=== PATIENT | male | born 1970 | race Caucasian/White ===

== ENCOUNTER 2018-12-05 22:26 | Inpatient (IN) | payer OTHER ==
[2018-12-06 01:59] LABS: WHITE BLOOD COUNT 10.3 10^3/ul (4.8-10.8)
[2018-12-06 01:59] LABS: ADD MAN DIFF? NO; BASOPHIL # 0.1 10^3/ul (0.0-0.1); BASOPHILS % 0.6 % (0.0-2.0); EOSINOPHILS # 0.4 10^3/ul (0.0-0.5); EOSINOPHILS % 3.8 % (0.0-7.0); HEMATOCRIT 27.6 % (42.0-52.0); HEMOGLOBIN 8.8 g/dl (14.0-18.0); LYMPHOCYTES # 2.2 10^3/ul (0.8-2.9); LYMPHOCYTES % 21.6 % (15.0-51.0); MEAN CORPUSCULAR HGB CONC 31.9 g/dl (32.0-37.0); MEAN CORPUSCULAR VOLUME 81.4 fl (82.0-101.0); MEAN PLATELET VOLUME 9.4 fl (7.4-10.4); MONOCYTE # 1.1 10^3/ul (0.3-0.9); MONOCYTES % 10.6 % (0.0-11.0); NEUTROPHIL # 6.5 10^3/ul (1.6-7.5); NEUTROPHILS % 62.8 % (39.0-77.0); PLATELET COUNT 543 10^3/UL (140-415); RED BLOOD COUNT 3.39 10^6/ul (4.70-6.10); RED CELL DISTRIBUTION WIDTH 12.7 % (11.5-14.5)
[2018-12-06 02:18] LABS: ALANINE AMINOTRANSFERASE 26 IU/L (13-69); ALBUMIN 3.1 g/dl (3.3-4.9); ALBUMIN/GLOBULIN RATIO 0.77; ALKALINE PHOSPHATASE 289 IU/L (42-121); ANION GAP 6 (5-13); ASPARTATE AMINO TRANSFERASE 21 IU/L (15-46); BILIRUBIN,INDIRECT 0.2 mg/dl (0-1.1); BILIRUBIN,TOTAL 0.2 mg/dl (0.2-1.3); BLOOD UREA NITROGEN 12 mg/dl (7-20); CALCIUM 8.8 mg/dl (8.4-10.2); CARBON DIOXIDE 27 mmol/L (21-31); CHLORIDE 107 mmol/L (97-110); CREATININE 1.05 mg/dl (0.61-1.24); Estimated GFR > 60 mL/min (>60); GLUCOSE 185 mg/dl (70-220); POTASSIUM 3.9 mmol/L (3.5-5.1); SODIUM 140 mmol/L (135-144); TOTAL PROTEIN 7.1 g/dl (6.1-8.1)
[2018-12-06] MEDS: SODIUM CHLORIDE 0.9% 1L BAG IV* (02:34)
[2018-12-06 02:35] LABS: INR 1.09; PROTIME 14.2 Sec (11.9-14.9); PT RATIO 1.1
[2018-12-06 02:36] LABS: PARTIAL THROMBOPLASTIN TIME 31.5 Sec (23.0-35.0)
[2018-12-06] MEDS: CEFEPIME 2GM/50 ML (PMX) 50 ML IVPB (02:38)
[2018-12-06] MEDS: VANCOMYCIN 1 GM (PMX) 250 ML IVPB (03:39)
[2018-12-06 06:08] LABS: LACTIC ACID 0.8 mmol/L (0.5-2.0)
[2018-12-06 07:27] LABS: B-TYPE NATRIURETIC PEPTIDE 7060 PG/ML (0-125)
[2018-12-06 07:27] LABS: TROPONIN-I 0.111 ng/ml (0.000-0.120)
[2018-12-06] MEDS ORDERED: ONDANSETRON 4 MG INJ IV (08:30)
[2018-12-06] MEDS ORDERED: NACL 0.9% 3 ML SYG IV (08:30)
[2018-12-06] MEDS: SOD CHLORIDE 0.45% 1,000 ML IV (10:20)
[2018-12-06] MEDS: ENOXAPARIN 40 MG/0.4 ML SYG SC (10:22)
[2018-12-06] MEDS: ASPIRIN (EC) 325 MG TAB PO (10:23)
[2018-12-06 10:47] LABS: CREATINE KINASE 210 IU/L (23-200)
[2018-12-06 11:00] LABS: CK INDEX 0.7; CK-MB 1.48 ng/ml (0.0-2.4); TROPONIN-I 0.082 ng/ml (0.000-0.120)
[2018-12-06 11:01] LABS: IRON 19 ug/dl (35-150)
[2018-12-06] MEDS: FUROSEMIDE 40 MG INJ IV (11:02)
[2018-12-06 11:12] LABS: % IRON SATURATION 10 % SAT (22-52); TOTAL IRON BINDING CAPACITY 200 ug/dl (241-421)
[2018-12-06] MEDS: CEFTRIAXONE 1 GM/50 ML (PMX) 50 ML IVPB (12:40)
[2018-12-06] MEDS: LINAGLIPTIN 5 MG TABLET PO (12:41)
[2018-12-06] MEDS: METOPROLOL (XL) 25 MG TAB PO (12:41)
[2018-12-06] MEDS: BRIMONIDINE 0.15% 5 ML OPH LEFT EYE ×2 (12:42→21:25)
[2018-12-06] MEDS: LOSARTAN 50 MG TAB PO (12:42)
[2018-12-06] MEDS: PREDNISOLONE ACET 1% 5 ML OPH RIGHT EYE ×3 (12:43→20:09)
[2018-12-06] MEDS: INSULIN ASPART [NOVOLOG] 3 ML PEN SC ×5 (13:06→21:25)
[2018-12-06 14:39] LABS: CREATINE KINASE 228 IU/L (23-200)
[2018-12-06 14:51] LABS: CK INDEX 0.8; CK-MB 1.82 ng/ml (0.0-2.4); TROPONIN-I 0.084 ng/ml (0.000-0.120)
[2018-12-06] MEDS: FERROUS SULFATE (EC) 325 MG TAB PO (17:12)
[2018-12-06] MEDS: ACETAMINOPHEN 325 MG TAB PO (17:12)
[2018-12-06] MEDS: ATORVASTATIN 40 MG TAB PO (20:09)
[2018-12-06] MEDS: INSULIN GLARGINE [LANTus] (100 UNITS/ML) SYG SC (20:14)
[2018-12-07] MEDS: ACCU-CHEK XX (01:13)
[2018-12-07] MEDS: PANTOPRAZOLE 40 MG INJ IV (05:28)
[2018-12-07] MEDS: hydrALAzine 20 MG INJ IV ×2 (05:30→16:06)
[2018-12-07] MEDS: BRIMONIDINE 0.15% 5 ML OPH LEFT EYE ×3 (05:35→21:38)
[2018-12-07 06:29] LABS: CHOLESTEROL 179 mg/dl (100-200)
[2018-12-07 06:29] LABS: CHOL/HDL RATIO 6.6 RATIO; HDL CHOLESTEROL 27 mg/dl (27-67); LDL CHOLESTEROL,CALCULATED 128 mg/dl; TRIGLYCERIDES 119 mg/dl (0-149)
[2018-12-07] MEDS: ASPIRIN (EC) 325 MG TAB PO (08:13)
[2018-12-07] MEDS: LOSARTAN 50 MG TAB PO ×2 (08:13→20:23)
[2018-12-07] MEDS: FERROUS SULFATE (EC) 325 MG TAB PO (08:13)
[2018-12-07] MEDS: LINAGLIPTIN 5 MG TABLET PO (08:13)
[2018-12-07] MEDS: METOPROLOL (XL) 25 MG TAB PO (08:13)
[2018-12-07] MEDS: PREDNISOLONE ACET 1% 5 ML OPH RIGHT EYE ×4 (08:14→20:28)
[2018-12-07] MEDS: INSULIN ASPART [NOVOLOG] 3 ML PEN SC ×7 (08:20→20:31)
[2018-12-07] MEDS: ENOXAPARIN 40 MG/0.4 ML SYG SC ×2 (08:21→13:34)
[2018-12-07] MEDS ORDERED: LISINOPRIL 20 MG TAB PO (09:00)
[2018-12-07] MEDS: REGADENOSON 0.4 MG/5 ML SYG (12:10)
[2018-12-07] MEDS: CEFTRIAXONE 1 GM/50 ML (PMX) 50 ML IVPB (13:14)
[2018-12-07] MEDS: FUROSEMIDE 40 MG INJ IV (16:06)
[2018-12-07 16:19] LABS: ADD MAN DIFF? NO
[2018-12-07 16:22] LABS: WHITE BLOOD COUNT 9.9 10^3/ul (4.8-10.8)
[2018-12-07 16:22] LABS: BASOPHIL # 0.1 10^3/ul (0.0-0.1); BASOPHILS % 0.7 % (0.0-2.0); EOSINOPHILS # 0.2 10^3/ul (0.0-0.5); EOSINOPHILS % 1.8 % (0.0-7.0); HEMATOCRIT 25.6 % (42.0-52.0); HEMOGLOBIN 8.1 g/dl (14.0-18.0); LYMPHOCYTES # 2.1 10^3/ul (0.8-2.9); LYMPHOCYTES % 20.9 % (15.0-51.0); MEAN CORPUSCULAR HEMOGLOBIN 25.8 pg (29.0-33.0); MEAN CORPUSCULAR HGB CONC 31.6 g/dl (32.0-37.0); MEAN CORPUSCULAR VOLUME 81.5 fl (82.0-101.0); MEAN PLATELET VOLUME 9.9 fl (7.4-10.4); MONOCYTE # 0.8 10^3/ul (0.3-0.9); MONOCYTES % 8.4 % (0.0-11.0); NEUTROPHIL # 6.7 10^3/ul (1.6-7.5); NEUTROPHILS % 67.4 % (39.0-77.0); PLATELET COUNT 502 10^3/UL (140-415); RED BLOOD COUNT 3.14 10^6/ul (4.70-6.10); RED CELL DISTRIBUTION WIDTH 13.2 % (11.5-14.5)
[2018-12-07] MEDS: ATORVASTATIN 40 MG TAB PO (20:15)
[2018-12-07] MEDS: INSULIN GLARGINE [LANTus] (100 UNITS/ML) SYG SC (20:31)
[2018-12-08] MEDS: hydrALAzine 20 MG INJ IV ×2 (00:14→17:26)
[2018-12-08] MEDS: ACCU-CHEK XX (00:21)
[2018-12-08] MEDS: PANTOPRAZOLE 40 MG INJ IV (05:10)
[2018-12-08] MEDS: BRIMONIDINE 0.15% 5 ML OPH LEFT EYE ×3 (05:12→21:11)
[2018-12-08] MEDS: INSULIN ASPART [NOVOLOG] 3 ML PEN SC ×7 (08:15→21:27)
[2018-12-08] MEDS: FERROUS SULFATE (EC) 325 MG TAB PO (08:33)
[2018-12-08] MEDS: LOSARTAN 50 MG TAB PO ×2 (08:34→21:11)
[2018-12-08] MEDS: LINAGLIPTIN 5 MG TABLET PO (08:34)
[2018-12-08] MEDS: METOPROLOL (XL) 25 MG TAB PO ×2 (08:34→13:03)
[2018-12-08] MEDS: ASPIRIN 81 MG TAB PO (08:34)
[2018-12-08] MEDS: FUROSEMIDE 40 MG INJ IV (08:35)
[2018-12-08] MEDS: ENOXAPARIN 40 MG/0.4 ML SYG SC (08:37)
[2018-12-08] MEDS: PREDNISOLONE ACET 1% 5 ML OPH RIGHT EYE ×4 (08:37→21:11)
[2018-12-08] MEDS: CEFTRIAXONE 1 GM/50 ML (PMX) 50 ML IVPB (12:18)
[2018-12-08] MEDS: DOXYCYCLINE 100 MG TAB PO (21:11)
[2018-12-08] MEDS: ATORVASTATIN 40 MG TAB PO (21:12)
[2018-12-08] MEDS: INSULIN GLARGINE [LANTus] (100 UNITS/ML) SYG SC (21:27)
[2018-12-09] MEDS: ACCU-CHEK XX (02:00)
[2018-12-09] MEDS: INSULIN ASPART [NOVOLOG] 3 ML PEN SC ×8 (04:37→20:14)
[2018-12-09] MEDS: BRIMONIDINE 0.15% 5 ML OPH LEFT EYE ×3 (05:47→21:59)
[2018-12-09] MEDS: PANTOPRAZOLE (EC) 40 MG TAB PO (05:47)
[2018-12-09] MEDS: FERROUS SULFATE (EC) 325 MG TAB PO ×2 (08:14→20:08)
[2018-12-09] MEDS: ASPIRIN 81 MG TAB PO (08:14)
[2018-12-09] MEDS: LINAGLIPTIN 5 MG TABLET PO (08:14)
[2018-12-09] MEDS: DOXYCYCLINE 100 MG TAB PO ×2 (08:14→20:08)
[2018-12-09] MEDS: METOPROLOL (XL) 25 MG TAB PO (08:15)
[2018-12-09] MEDS: LOSARTAN 50 MG TAB PO ×2 (08:16→20:08)
[2018-12-09] MEDS: ENOXAPARIN 40 MG/0.4 ML SYG SC (08:17)
[2018-12-09] MEDS: FUROSEMIDE 40 MG INJ IV (08:17)
[2018-12-09] MEDS: PREDNISOLONE ACET 1% 5 ML OPH RIGHT EYE ×4 (08:18→20:09)
[2018-12-09 09:01] LABS: ANION GAP 5 (5-13); BLOOD UREA NITROGEN 18 mg/dl (7-20); CALCIUM 8.6 mg/dl (8.4-10.2); CARBON DIOXIDE 27 mmol/L (21-31); CHLORIDE 105 mmol/L (97-110); CREATININE 1.07 mg/dl (0.61-1.24); Estimated GFR > 60 mL/min (>60); GLUCOSE 115 mg/dl (70-220); SODIUM 137 mmol/L (135-144)
[2018-12-09 09:35] LABS: ADD UMIC YES; UR ASCORBIC ACID NEGATIVE (NEGATIVE); UR BACTERIA FEW /HPF (NONE SEEN); UR BILIRUBIN (Dip) NEGATIVE (NEGATIVE); UR BLOOD (Dip) 1+ mg/dL (NEGATIVE); UR CLARITY CLEAR (CLEAR); UR COLOR YELLOW (YELLOW); UR GLUCOSE (Dip) 1+ mg/dL (NEGATIVE); UR KETONES (Dip) NEGATIVE (NEGATIVE); UR LEUKOCYTE ESTERASE (Dip) NEGATIVE Leu/ul (NEGATIVE); UR NITRITE (Dip) NEGATIVE (NEGATIVE); UR RBC 4 /HPF (0-5); UR SPECIFIC GRAVITY (Dip) 1.018 (1.003-1.030); UR TOTAL PROTEIN (Dip) 2+ mg/dl (NEGATIVE); UR UROBILINOGEN (Dip) NEGATIVE (NEGATIVE); UR WBC 1 /HPF (0-5)
[2018-12-09] MEDS: CEFTRIAXONE 1 GM/50 ML (PMX) 50 ML IVPB (10:20)
[2018-12-09] MEDS: hydrALAzine 20 MG INJ IV (10:20)
[2018-12-09] MEDS: ATORVASTATIN 40 MG TAB PO (20:08)
[2018-12-09] MEDS: INSULIN GLARGINE [LANTus] (100 UNITS/ML) SYG SC (20:32)
[2018-12-10] MEDS: ACCU-CHEK XX (02:00)
[2018-12-10] MEDS: BRIMONIDINE 0.15% 5 ML OPH LEFT EYE ×3 (05:56→21:19)
[2018-12-10] MEDS: PANTOPRAZOLE (EC) 40 MG TAB PO (05:58)
[2018-12-10 06:51] LABS: ADD MAN DIFF? NO
[2018-12-10 06:53] LABS: BASOPHIL # 0.1 10^3/ul (0.0-0.1); BASOPHILS % 0.9 % (0.0-2.0); EOSINOPHILS # 0.3 10^3/ul (0.0-0.5); EOSINOPHILS % 2.9 % (0.0-7.0); HEMATOCRIT 26.3 % (42.0-52.0); HEMOGLOBIN 8.3 g/dl (14.0-18.0); LYMPHOCYTES # 1.9 10^3/ul (0.8-2.9); LYMPHOCYTES % 20.5 % (15.0-51.0); MEAN CORPUSCULAR HGB CONC 31.6 g/dl (32.0-37.0); MEAN CORPUSCULAR VOLUME 82.4 fl (82.0-101.0); MEAN PLATELET VOLUME 9.8 fl (7.4-10.4); MONOCYTE # 0.8 10^3/ul (0.3-0.9); NEUTROPHIL # 6.2 10^3/ul (1.6-7.5); NEUTROPHILS % 66.1 % (39.0-77.0); PLATELET COUNT 498 10^3/UL (140-415); RED BLOOD COUNT 3.19 10^6/ul (4.70-6.10); RED CELL DISTRIBUTION WIDTH 13.6 % (11.5-14.5)
[2018-12-10 06:53] LABS: WHITE BLOOD COUNT 9.3 10^3/ul (4.8-10.8)
[2018-12-10 07:59] LABS: ANION GAP 5 (5-13); BLOOD UREA NITROGEN 18 mg/dl (7-20); CALCIUM 8.6 mg/dl (8.4-10.2); CARBON DIOXIDE 26 mmol/L (21-31); CHLORIDE 107 mmol/L (97-110); CREATININE 0.99 mg/dl (0.61-1.24); Estimated GFR > 60 mL/min (>60); GLUCOSE 214 mg/dl (70-220); POTASSIUM 4.1 mmol/L (3.5-5.1); SODIUM 138 mmol/L (135-144)
[2018-12-10] MEDS: INSULIN ASPART [NOVOLOG] 3 ML PEN SC ×7 (08:45→20:53)
[2018-12-10] MEDS: PREDNISOLONE ACET 1% 5 ML OPH RIGHT EYE ×4 (09:00→20:56)
[2018-12-10] MEDS: DOXYCYCLINE 100 MG TAB PO ×2 (09:59→20:58)
[2018-12-10] MEDS: FUROSEMIDE 40 MG INJ IV ×2 (10:00→17:51)
[2018-12-10] MEDS: LOSARTAN 50 MG TAB PO ×2 (10:00→21:01)
[2018-12-10] MEDS: FERROUS SULFATE (EC) 325 MG TAB PO ×2 (10:00→20:58)
[2018-12-10] MEDS: METOPROLOL (XL) 25 MG TAB PO (10:00)
[2018-12-10] MEDS: ASPIRIN 81 MG TAB PO (10:00)
[2018-12-10] MEDS: LINAGLIPTIN 5 MG TABLET PO (10:01)
[2018-12-10] MEDS: ENOXAPARIN 40 MG/0.4 ML SYG SC (10:03)
[2018-12-10] MEDS: INSULIN GLARGINE [LANTus] (100 UNITS/ML) SYG SC (20:51)
[2018-12-10] MEDS: ATORVASTATIN 40 MG TAB PO (20:57)
[2018-12-11] MEDS: ACCU-CHEK XX (02:00)
[2018-12-11] MEDS: hydrALAzine 20 MG INJ IV (02:08)
[2018-12-11 03:23] LABS: ADD UMIC YES; UR ASCORBIC ACID NEGATIVE (NEGATIVE); UR BILIRUBIN (Dip) NEGATIVE (NEGATIVE); UR BLOOD (Dip) 1+ mg/dL (NEGATIVE); UR CLARITY CLEAR (CLEAR); UR COLOR YELLOW (YELLOW); UR GLUCOSE (Dip) 1+ mg/dL (NEGATIVE); UR KETONES (Dip) NEGATIVE (NEGATIVE); UR LEUKOCYTE ESTERASE (Dip) NEGATIVE Leu/ul (NEGATIVE); UR NITRITE (Dip) NEGATIVE (NEGATIVE); UR RBC 8 /HPF (0-5); UR SPECIFIC GRAVITY (Dip) 1.013 (1.003-1.030); UR TOTAL PROTEIN (Dip) 2+ mg/dl (NEGATIVE); UR UROBILINOGEN (Dip) NEGATIVE (NEGATIVE); UR WBC 0 /HPF (0-5)
[2018-12-11 03:27] LABS: CREATININE,URINE RANDOM 80.75 mg/dl (20-370); PROTEIN/CREAT RATIO 2.29 RATIO
[2018-12-11 05:08] LABS: ADD MAN DIFF? NO
[2018-12-11 05:20] LABS: BASOPHIL # 0.1 10^3/ul (0.0-0.1); BASOPHILS % 1.1 % (0.0-2.0); EOSINOPHILS # 0.3 10^3/ul (0.0-0.5); EOSINOPHILS % 2.8 % (0.0-7.0); HEMATOCRIT 25.3 % (42.0-52.0); HEMOGLOBIN 8.1 g/dl (14.0-18.0); LYMPHOCYTES # 2.5 10^3/ul (0.8-2.9); LYMPHOCYTES % 26.7 % (15.0-51.0); MEAN CORPUSCULAR VOLUME 81.4 fl (82.0-101.0); MONOCYTES % 10.3 % (0.0-11.0); NEUTROPHIL # 5.5 10^3/ul (1.6-7.5); NEUTROPHILS % 58.6 % (39.0-77.0); PLATELET COUNT 457 10^3/UL (140-415); RED BLOOD COUNT 3.11 10^6/ul (4.70-6.10); RED CELL DISTRIBUTION WIDTH 13.8 % (11.5-14.5)
[2018-12-11 05:20] LABS: WHITE BLOOD COUNT 9.4 10^3/ul (4.8-10.8)
[2018-12-11 05:53] LABS: ANION GAP 4 (5-13); BLOOD UREA NITROGEN 18 mg/dl (7-20); CALCIUM 8.6 mg/dl (8.4-10.2); CARBON DIOXIDE 29 mmol/L (21-31); CHLORIDE 105 mmol/L (97-110); CREATININE 0.94 mg/dl (0.61-1.24); Estimated GFR > 60 mL/min (>60); GLUCOSE 159 mg/dl (70-220); POTASSIUM 3.7 mmol/L (3.5-5.1); SODIUM 138 mmol/L (135-144)
[2018-12-11] MEDS: BRIMONIDINE 0.15% 5 ML OPH LEFT EYE ×3 (06:00→20:39)
[2018-12-11] MEDS: PANTOPRAZOLE (EC) 40 MG TAB PO (06:46)
[2018-12-11] MEDS: FUROSEMIDE 40 MG INJ IV ×2 (06:48→17:52)
[2018-12-11] MEDS: INSULIN ASPART [NOVOLOG] 3 ML PEN SC ×7 (07:50→20:41)
[2018-12-11] MEDS: METOPROLOL (XL) 25 MG TAB PO ×2 (09:00→11:10)
[2018-12-11] MEDS: LINAGLIPTIN 5 MG TABLET PO ×2 (09:00→11:07)
[2018-12-11] MEDS: FERROUS SULFATE (EC) 325 MG TAB PO ×3 (09:00→20:38)
[2018-12-11] MEDS: ASPIRIN 81 MG TAB PO ×2 (09:00→11:08)
[2018-12-11] MEDS: METOLAZONE 2.5 MG TAB PO ×2 (09:00→11:08)
[2018-12-11] MEDS: DOXYCYCLINE 100 MG TAB PO ×3 (09:00→20:38)
[2018-12-11] MEDS: LOSARTAN 50 MG TAB PO ×3 (09:00→20:39)
[2018-12-11] MEDS: ENOXAPARIN 40 MG/0.4 ML SYG SC ×2 (09:00→11:12)
[2018-12-11] MEDS: PREDNISOLONE ACET 1% 5 ML OPH RIGHT EYE ×4 (09:00→20:39)
[2018-12-11] MEDS: CEFTRIAXONE 1 GM/50 ML (PMX) 50 ML IVPB (15:25)
[2018-12-11] MEDS: traMADol 50 MG TAB PO (19:48)
[2018-12-11] MEDS: ATORVASTATIN 40 MG TAB PO (20:38)
[2018-12-11] MEDS: INSULIN GLARGINE [LANTus] (100 UNITS/ML) SYG SC (20:40)
[2018-12-12] MEDS: ACCU-CHEK XX (02:00)
[2018-12-12] MEDS: FUROSEMIDE 40 MG INJ IV ×2 (05:40→06:00)
[2018-12-12] MEDS: PANTOPRAZOLE (EC) 40 MG TAB PO (05:40)
[2018-12-12] MEDS: BRIMONIDINE 0.15% 5 ML OPH LEFT EYE ×3 (05:40→16:05)
[2018-12-12] MEDS: hydrALAzine 20 MG INJ IV (05:46)
[2018-12-12] MEDS: LINAGLIPTIN 5 MG TABLET PO (09:04)
[2018-12-12] MEDS: ASPIRIN 81 MG TAB PO (09:04)
[2018-12-12] MEDS: FERROUS SULFATE (EC) 325 MG TAB PO ×2 (09:05→20:22)
[2018-12-12] MEDS: LOSARTAN 50 MG TAB PO ×2 (09:06→20:23)
[2018-12-12] MEDS: DOXYCYCLINE 100 MG TAB PO ×2 (09:06→20:22)
[2018-12-12] MEDS: METOLAZONE 2.5 MG TAB PO (09:06)
[2018-12-12] MEDS: METOPROLOL (XL) 25 MG TAB PO (09:07)
[2018-12-12] MEDS: PREDNISOLONE ACET 1% 5 ML OPH RIGHT EYE ×4 (09:07→20:24)
[2018-12-12] MEDS: ENOXAPARIN 40 MG/0.4 ML SYG SC (09:10)
[2018-12-12] MEDS: INSULIN ASPART [NOVOLOG] 3 ML PEN SC ×7 (09:10→20:28)
[2018-12-12] MEDS: traMADol 50 MG TAB PO (09:47)
[2018-12-12] MEDS: CEFTRIAXONE 1 GM/50 ML (PMX) 50 ML IVPB (16:03)
[2018-12-12] MEDS: FUROSEMIDE 40 MG TAB PO (18:00)
[2018-12-12] MEDS: ATORVASTATIN 40 MG TAB PO (20:22)
[2018-12-12] MEDS: INSULIN GLARGINE [LANTus] (100 UNITS/ML) SYG SC (20:29)
[2018-12-13] MEDS: hydrALAzine 20 MG INJ IV (01:40)
[2018-12-13] MEDS: BRIMONIDINE 0.15% 5 ML OPH LEFT EYE ×4 (01:43→20:56)
[2018-12-13] MEDS: ACCU-CHEK XX (01:44)
[2018-12-13] MEDS: FUROSEMIDE 40 MG TAB PO ×2 (07:47→17:49)
[2018-12-13] MEDS: PANTOPRAZOLE (EC) 40 MG TAB PO (07:47)
[2018-12-13] MEDS: METOLAZONE 2.5 MG TAB PO (08:53)
[2018-12-13] MEDS: FERROUS SULFATE (EC) 325 MG TAB PO ×2 (08:53→20:43)
[2018-12-13] MEDS: DOXYCYCLINE 100 MG TAB PO ×2 (08:53→20:44)
[2018-12-13] MEDS: ASPIRIN 81 MG TAB PO (08:53)
[2018-12-13] MEDS: LINAGLIPTIN 5 MG TABLET PO (08:54)
[2018-12-13] MEDS: METOPROLOL (XL) 25 MG TAB PO (08:54)
[2018-12-13] MEDS: LOSARTAN 50 MG TAB PO ×2 (08:55→20:47)
[2018-12-13] MEDS: INSULIN ASPART [NOVOLOG] 3 ML PEN SC ×7 (08:58→20:41)
[2018-12-13] MEDS: PREDNISOLONE ACET 1% 5 ML OPH RIGHT EYE ×4 (09:00→20:56)
[2018-12-13] MEDS: ENOXAPARIN 40 MG/0.4 ML SYG SC (09:00)
[2018-12-13 09:54] LABS: ANION GAP 11 (5-13); BLOOD UREA NITROGEN 18 mg/dl (7-20); CARBON DIOXIDE 32 mmol/L (21-31); CHLORIDE 94 mmol/L (97-110); CREATININE 1.12 mg/dl (0.61-1.24); Estimated GFR > 60 mL/min (>60); GLUCOSE 178 mg/dl (70-220); SODIUM 137 mmol/L (135-144)
[2018-12-13 09:54] LABS: PHOSPHORUS 4.4 mg/dl (2.5-4.9)
[2018-12-13] MEDS: CEFTRIAXONE 1 GM/50 ML (PMX) 50 ML IVPB (15:17)
[2018-12-13] MEDS: INSULIN GLARGINE [LANTus] (100 UNITS/ML) SYG SC (20:42)
[2018-12-13] MEDS: ATORVASTATIN 40 MG TAB PO (20:44)
[2018-12-14] MEDS: ACCU-CHEK XX (02:00)
[2018-12-14] MEDS: BRIMONIDINE 0.15% 5 ML OPH LEFT EYE ×3 (05:22→22:11)
[2018-12-14] MEDS: PANTOPRAZOLE (EC) 40 MG TAB PO (05:23)
[2018-12-14] MEDS: FUROSEMIDE 40 MG TAB PO ×2 (05:23→18:51)
[2018-12-14] MEDS: PREDNISOLONE ACET 1% 5 ML OPH RIGHT EYE ×4 (09:00→21:14)
[2018-12-14] MEDS: DOXYCYCLINE 100 MG TAB PO ×2 (11:13→21:11)
[2018-12-14] MEDS: FERROUS SULFATE (EC) 325 MG TAB PO ×2 (11:13→21:09)
[2018-12-14] MEDS: LINAGLIPTIN 5 MG TABLET PO (11:13)
[2018-12-14] MEDS: LOSARTAN 50 MG TAB PO ×2 (11:14→21:11)
[2018-12-14] MEDS: METOLAZONE 2.5 MG TAB PO (11:14)
[2018-12-14] MEDS: METOPROLOL (XL) 25 MG TAB PO (11:15)
[2018-12-14] MEDS: ENOXAPARIN 40 MG/0.4 ML SYG SC (11:23)
[2018-12-14] MEDS: INSULIN ASPART [NOVOLOG] 3 ML PEN SC ×7 (11:23→21:05)
[2018-12-14] MEDS: ASPIRIN 81 MG TAB PO (11:26)
[2018-12-14] MEDS: INSULIN GLARGINE [LANTus] (100 UNITS/ML) SYG SC (21:05)
[2018-12-14] MEDS: ATORVASTATIN 40 MG TAB PO (21:09)
[2018-12-15] MEDS: ACCU-CHEK XX (02:00)
[2018-12-15] MEDS: BRIMONIDINE 0.15% 5 ML OPH LEFT EYE ×3 (06:40→21:33)
[2018-12-15] MEDS: PANTOPRAZOLE (EC) 40 MG TAB PO (06:41)
[2018-12-15] MEDS: FUROSEMIDE 40 MG TAB PO ×2 (06:41→18:31)
[2018-12-15] MEDS: PREDNISOLONE ACET 1% 5 ML OPH RIGHT EYE ×4 (09:00→21:33)
[2018-12-15] MEDS: INSULIN ASPART [NOVOLOG] 3 ML PEN SC ×7 (11:09→21:00)
[2018-12-15] MEDS: ENOXAPARIN 40 MG/0.4 ML SYG SC (11:10)
[2018-12-15] MEDS: LOSARTAN 50 MG TAB PO ×2 (11:12→21:33)
[2018-12-15] MEDS: LINAGLIPTIN 5 MG TABLET PO (11:12)
[2018-12-15] MEDS: METOPROLOL (XL) 25 MG TAB PO (11:13)
[2018-12-15] MEDS: FERROUS SULFATE (EC) 325 MG TAB PO ×2 (11:13→21:30)
[2018-12-15] MEDS: DOXYCYCLINE 100 MG TAB PO ×2 (11:13→21:31)
[2018-12-15] MEDS: METOLAZONE 2.5 MG TAB PO (11:13)
[2018-12-15] MEDS: ASPIRIN 81 MG TAB PO (11:13)
[2018-12-15] MEDS: ATORVASTATIN 40 MG TAB PO (21:30)
[2018-12-15] MEDS: INSULIN GLARGINE [LANTus] (100 UNITS/ML) SYG SC (21:30)
[2018-12-16] MEDS: ACCU-CHEK XX (02:00)
[2018-12-16] MEDS: BRIMONIDINE 0.15% 5 ML OPH LEFT EYE ×4 (06:00→21:25)
[2018-12-16] MEDS: PANTOPRAZOLE (EC) 40 MG TAB PO (06:37)
[2018-12-16] MEDS: FUROSEMIDE 40 MG TAB PO ×2 (06:39→17:45)
[2018-12-16] MEDS: INSULIN ASPART [NOVOLOG] 3 ML PEN SC ×7 (08:55→21:23)
[2018-12-16] MEDS: ENOXAPARIN 40 MG/0.4 ML SYG SC (08:56)
[2018-12-16] MEDS: DOXYCYCLINE 100 MG TAB PO ×2 (08:56→21:24)
[2018-12-16] MEDS: FERROUS SULFATE (EC) 325 MG TAB PO ×2 (08:57→21:24)
[2018-12-16] MEDS: METOLAZONE 2.5 MG TAB PO (08:57)
[2018-12-16] MEDS: METOPROLOL (XL) 25 MG TAB PO (08:58)
[2018-12-16] MEDS: ASPIRIN 81 MG TAB PO (08:58)
[2018-12-16] MEDS: LOSARTAN 50 MG TAB PO ×2 (08:58→21:27)
[2018-12-16] MEDS: LINAGLIPTIN 5 MG TABLET PO (08:58)
[2018-12-16] MEDS: PREDNISOLONE ACET 1% 5 ML OPH RIGHT EYE ×4 (08:59→21:25)
[2018-12-16 14:18] LABS: ANION GAP 3 (5-13); BLOOD UREA NITROGEN 31 mg/dl (7-20); CALCIUM 9.1 mg/dl (8.4-10.2); CARBON DIOXIDE 35 mmol/L (21-31); CHLORIDE 99 mmol/L (97-110); CREATININE 1.24 mg/dl (0.61-1.24); Estimated GFR > 60 mL/min (>60); GLUCOSE 182 mg/dl (70-220); POTASSIUM 4.1 mmol/L (3.5-5.1); SODIUM 137 mmol/L (135-144)
[2018-12-16] MEDS: INSULIN GLARGINE [LANTus] (100 UNITS/ML) SYG SC (21:22)
[2018-12-16] MEDS: ATORVASTATIN 40 MG TAB PO (21:24)
[2018-12-17] MEDS: ACCU-CHEK XX (02:00)
[2018-12-17] MEDS: BRIMONIDINE 0.15% 5 ML OPH LEFT EYE ×3 (06:00→21:51)
[2018-12-17] MEDS: FUROSEMIDE 40 MG TAB PO ×2 (06:46→17:11)
[2018-12-17] MEDS: PANTOPRAZOLE (EC) 40 MG TAB PO (06:46)
[2018-12-17] MEDS: INSULIN ASPART [NOVOLOG] 3 ML PEN SC ×7 (08:51→21:00)
[2018-12-17] MEDS: METOPROLOL (XL) 25 MG TAB PO (08:54)
[2018-12-17] MEDS: ASPIRIN 81 MG TAB PO (08:54)
[2018-12-17] MEDS: LOSARTAN 50 MG TAB PO ×2 (08:55→21:07)
[2018-12-17] MEDS: LINAGLIPTIN 5 MG TABLET PO (08:55)
[2018-12-17] MEDS: DOXYCYCLINE 100 MG TAB PO ×2 (08:55→21:05)
[2018-12-17] MEDS: PREDNISOLONE ACET 1% 5 ML OPH RIGHT EYE ×4 (08:56→21:08)
[2018-12-17] MEDS: FERROUS SULFATE (EC) 325 MG TAB PO ×2 (09:00→21:00)
[2018-12-17] MEDS: ENOXAPARIN 40 MG/0.4 ML SYG SC (09:02)
[2018-12-17] MEDS: ATORVASTATIN 40 MG TAB PO (21:04)
[2018-12-17] MEDS: INSULIN GLARGINE [LANTus] (100 UNITS/ML) SYG SC (21:14)
[2018-12-18] MEDS: ACCU-CHEK XX (02:00)
[2018-12-18] MEDS: BRIMONIDINE 0.15% 5 ML OPH LEFT EYE ×3 (05:43→21:52)
[2018-12-18] MEDS: PANTOPRAZOLE (EC) 40 MG TAB PO (05:44)
[2018-12-18] MEDS: FUROSEMIDE 40 MG TAB PO ×2 (05:44→19:39)
[2018-12-18] MEDS: INSULIN ASPART [NOVOLOG] 3 ML PEN SC ×7 (07:50→21:00)
[2018-12-18] MEDS: PREDNISOLONE ACET 1% 5 ML OPH RIGHT EYE ×4 (09:00→20:45)
[2018-12-18] MEDS: DOXYCYCLINE 100 MG TAB PO ×2 (09:32→20:45)
[2018-12-18] MEDS: ASPIRIN 81 MG TAB PO (09:33)
[2018-12-18] MEDS: METOPROLOL (XL) 25 MG TAB PO (09:33)
[2018-12-18] MEDS: FERROUS SULFATE (EC) 325 MG TAB PO ×2 (09:33→20:45)
[2018-12-18] MEDS: LINAGLIPTIN 5 MG TABLET PO (09:34)
[2018-12-18] MEDS: LOSARTAN 50 MG TAB PO ×2 (09:34→20:45)
[2018-12-18] MEDS: ENOXAPARIN 40 MG/0.4 ML SYG SC (09:37)
[2018-12-18] MEDS: INSULIN GLARGINE [LANTus] (100 UNITS/ML) SYG SC (19:37)
[2018-12-18] MEDS: ATORVASTATIN 40 MG TAB PO (20:44)
[2018-12-18] MEDS: DOCUSATE SODIUM 100 MG CAP PO (20:45)
[2018-12-19] MEDS: ACCU-CHEK XX (02:59)
[2018-12-19] MEDS: PANTOPRAZOLE (EC) 40 MG TAB PO (05:23)
[2018-12-19] MEDS: BRIMONIDINE 0.15% 5 ML OPH LEFT EYE ×3 (05:24→20:45)
[2018-12-19] MEDS: FUROSEMIDE 40 MG TAB PO (10:14)
[2018-12-19] MEDS: ASPIRIN 81 MG TAB PO (10:14)
[2018-12-19] MEDS: DOXYCYCLINE 100 MG TAB PO (10:15)
[2018-12-19] MEDS: LINAGLIPTIN 5 MG TABLET PO (10:15)
[2018-12-19] MEDS: FERROUS SULFATE (EC) 325 MG TAB PO ×2 (10:15→20:30)
[2018-12-19] MEDS: PREDNISOLONE ACET 1% 5 ML OPH RIGHT EYE ×4 (10:15→20:33)
[2018-12-19] MEDS: METOPROLOL (XL) 25 MG TAB PO (10:16)
[2018-12-19] MEDS: LOSARTAN 50 MG TAB PO ×2 (10:16→20:33)
[2018-12-19] MEDS: INSULIN ASPART [NOVOLOG] 3 ML PEN SC ×7 (10:18→20:36)
[2018-12-19] MEDS: ENOXAPARIN 40 MG/0.4 ML SYG SC (10:20)
[2018-12-19 10:53] LABS: ANION GAP 7 (5-13); BLOOD UREA NITROGEN 44 mg/dl (7-20); CALCIUM 9.2 mg/dl (8.4-10.2); CARBON DIOXIDE 30 mmol/L (21-31); CHLORIDE 102 mmol/L (97-110); CREATININE 1.34 mg/dl (0.61-1.24); Estimated GFR 57 mL/min (>60); GLUCOSE 173 mg/dl (70-220); SODIUM 139 mmol/L (135-144)
[2018-12-19] MEDS ORDERED: GLUCAGON 1 MG INJ IM (12:00)
[2018-12-19] MEDS ORDERED: DEXTROSE 50% 50 ML SYRINGE IV ×2 (12:00)
[2018-12-19] MEDS ORDERED: GLUCOSE GEL 15 GRAM TUBE BUCCAL (12:00)
[2018-12-19] MEDS ORDERED: GLUCOSE GEL 15 GRAM TUBE PO ×2 (12:00)
[2018-12-19] MEDS: ATORVASTATIN 40 MG TAB PO (20:33)
[2018-12-19] MEDS: INSULIN GLARGINE [LANTus] (100 UNITS/ML) SYG SC (20:36)
[2018-12-20] MEDS: ACCU-CHEK XX (02:10)
[2018-12-20] MEDS: BRIMONIDINE 0.15% 5 ML OPH LEFT EYE ×2 (05:53→14:00)
[2018-12-20] MEDS: PANTOPRAZOLE (EC) 40 MG TAB PO (05:54)
[2018-12-20] MEDS: PREDNISOLONE ACET 1% 5 ML OPH RIGHT EYE ×3 (09:00→13:00)
[2018-12-20] MEDS: ENOXAPARIN 40 MG/0.4 ML SYG SC ×2 (09:00→10:39)
[2018-12-20] MEDS: INSULIN ASPART [NOVOLOG] 3 ML PEN SC ×4 (10:35→13:07)
[2018-12-20] MEDS: METOPROLOL (XL) 25 MG TAB PO (10:38)
[2018-12-20] MEDS: FERROUS SULFATE (EC) 325 MG TAB PO (10:39)
[2018-12-20] MEDS: ASPIRIN 81 MG TAB PO (10:39)
[2018-12-20] MEDS: LINAGLIPTIN 5 MG TABLET PO (10:39)
[2018-12-20] MEDS: FUROSEMIDE 40 MG TAB PO (10:40)
[2018-12-20] MEDS: LOSARTAN 50 MG TAB PO (10:40)
[2018-12-20 11:19] LABS: MAGNESIUM 2.2 mg/dl (1.7-2.5)
[2018-12-20 11:19] LABS: PHOSPHORUS 4.3 mg/dl (2.5-4.9)
[2018-12-20 11:35] LABS: ANION GAP 9 (5-13); BLOOD UREA NITROGEN 38 mg/dl (7-20); CALCIUM 9.5 mg/dl (8.4-10.2); CARBON DIOXIDE 28 mmol/L (21-31); CHLORIDE 102 mmol/L (97-110); CREATININE 1.17 mg/dl (0.61-1.24); Estimated GFR > 60 mL/min (>60); GLUCOSE 144 mg/dl (70-220); POTASSIUM 4.6 mmol/L (3.5-5.1); SODIUM 139 mmol/L (135-144)
== END 2018-12-20 17:55 | DRG 73 ==
LOC: E/R 22:26 → MS1 12-10 15:59 → ICU 12-06 03:07 → TEL 12-06 23:40
DX: E11.610 Type 2 diabetes mellitus with diabetic neuropathic arthropathy (principal); I50.33 Acute on chronic diastolic (congestive) heart failure; N39.0 Urinary tract infection, site not specified; I11.0 Hypertensive heart disease with heart failure; E78.5 Hyperlipidemia, unspecified; E11.65 Type 2 diabetes mellitus with hyperglycemia; E11.42 Type 2 diabetes mellitus with diabetic polyneuropathy; E11.51 Type 2 diabetes mellitus with diabetic peripheral angiopathy without gangrene; R74.8 Abnormal levels of other serum enzymes; D50.9 Iron deficiency anemia, unspecified; E11.319 Type 2 diabetes mellitus with unspecified diabetic retinopathy without macular edema; H54.61 Unqualified visual loss, right eye, normal vision left eye; E66.3 Overweight; E11.29 Type 2 diabetes mellitus with other diabetic kidney complication; R80.9 Proteinuria, unspecified; I25.2 Old myocardial infarction; Z91.14 Patient's other noncompliance with medication regimen; Z83.3 Family history of diabetes mellitus; Z89.411 Acquired absence of right great toe; Z86.73 Personal history of transient ischemic attack (TIA), and cerebral infarction without residual deficits
CPT/HCPCS: 36415; 71045; 73610-RT; 73630; 73718; 73721; 78452; 80048; 80053; 80061; 81001; 81003; 82550; 82553; 82570; 82962; 83036; 83540; 83605; 83735; 83880; 84100; 84484; 85025; 85610; 85730; 87040; 87081; 93005; 93017; 93306; 93923; 93971; 96365; 97110; 97116; 97161; 97530; 99285-25

== ENCOUNTER 2019-04-25 21:23 | Emergency (ER) | payer OTHER | END 2019-04-26 00:50 | disposition home or self-care (01) | LOC: E/R 04-26 00:50 | DX: E11.621 Type 2 diabetes mellitus with foot ulcer (principal); L97.529 Non-pressure chronic ulcer of other part of left foot with unspecified severity; I11.0 Hypertensive heart disease with heart failure; I50.9 Heart failure, unspecified; I25.10 Atherosclerotic heart disease of native coronary artery without angina pectoris; Z79.84 Long term (current) use of oral hypoglycemic drugs | CPT/HCPCS: 73630; 87070; 99283-25 ==

== ENCOUNTER 2019-06-08 17:08 | Emergency (ER) | payer OTHER | END 2019-06-08 21:21 | disposition home or self-care (01) | LOC: E/R 17:08 | DX: M86.9 Osteomyelitis, unspecified (principal); I10 Essential (primary) hypertension; E11.9 Type 2 diabetes mellitus without complications; Z79.4 Long term (current) use of insulin; Z79.84 Long term (current) use of oral hypoglycemic drugs; Z86.73 Personal history of transient ischemic attack (TIA), and cerebral infarction without residual deficits | CPT/HCPCS: 71045; 93005; 93971; 99285-25 ==

== ENCOUNTER 2019-06-11 02:49 | Inpatient (IN) | payer OTHER ==
[2019-06-11 03:55] LABS: ADD MAN DIFF? NO
[2019-06-11 04:02] LABS: WHITE BLOOD COUNT 9.6 10^3/ul (4.8-10.8)
[2019-06-11 04:02] LABS: BASOPHIL # 0.1 10^3/ul (0.0-0.1); BASOPHILS % 0.8 % (0.0-2.0); EOSINOPHILS # 0.3 10^3/ul (0.0-0.5); EOSINOPHILS % 2.7 % (0.0-7.0); HEMATOCRIT 30.9 % (42.0-52.0); HEMOGLOBIN 9.7 g/dl (14.0-18.0); LYMPHOCYTES # 2.3 10^3/ul (0.8-2.9); LYMPHOCYTES % 24.2 % (15.0-51.0); MEAN CORPUSCULAR HEMOGLOBIN 25.9 pg (29.0-33.0); MEAN CORPUSCULAR HGB CONC 31.4 g/dl (32.0-37.0); MEAN CORPUSCULAR VOLUME 82.6 fl (82.0-101.0); MEAN PLATELET VOLUME 10.8 fl (7.4-10.4); MONOCYTES % 10.2 % (0.0-11.0); NEUTROPHIL # 5.9 10^3/ul (1.6-7.5); NEUTROPHILS % 61.8 % (39.0-77.0); PLATELET COUNT 335 10^3/UL (140-415); RED BLOOD COUNT 3.74 10^6/ul (4.70-6.10); RED CELL DISTRIBUTION WIDTH 14.8 % (11.5-14.5)
[2019-06-11] MEDS: VANCOMYCIN 1 GM (PMX) 250 ML IVPB (04:03)
[2019-06-11] MEDS: PIPER-TAZO 3.375 GM IV (PMX) 100 ML IVPB (04:03)
[2019-06-11 04:05] LABS: INR 1.04; PROTIME 13.7 Sec (11.9-14.9); PT RATIO 1.1
[2019-06-11 04:06] LABS: PARTIAL THROMBOPLASTIN TIME 29.8 Sec (23.0-35.0)
[2019-06-11 04:13] LABS: ALANINE AMINOTRANSFERASE 79 IU/L (13-69); ALBUMIN 3.5 g/dl (3.3-4.9); ALBUMIN/GLOBULIN RATIO 0.87; ALKALINE PHOSPHATASE 300 IU/L (42-121); ANION GAP 6 (5-13); ASPARTATE AMINO TRANSFERASE 26 IU/L (15-46); BILIRUBIN,INDIRECT 0.5 mg/dl (0-1.1); BILIRUBIN,TOTAL 0.5 mg/dl (0.2-1.3); BLOOD UREA NITROGEN 11 mg/dl (7-20); CARBON DIOXIDE 29 mmol/L (21-31); CHLORIDE 105 mmol/L (97-110); CREATININE 1.16 mg/dl (0.61-1.24); Estimated GFR > 60 mL/min (>60); GLUCOSE 168 mg/dl (70-220); POTASSIUM 4.6 mmol/L (3.5-5.1); SODIUM 140 mmol/L (135-144); TOTAL PROTEIN 7.5 g/dl (6.1-8.1)
[2019-06-11 04:24] LABS: TROPONIN-I 0.102 ng/ml (0.000-0.120)
[2019-06-11 04:43] LABS: C-REACTIVE PROTEIN 1.6 mg/dl (0.0-0.9)
[2019-06-11] MEDS ORDERED: ONDANSETRON 4 MG INJ IV (05:00)
[2019-06-11] MEDS ORDERED: ACETAMINOPHEN 325 MG TAB PO (05:00)
[2019-06-11 05:30] LABS: ERYTHROCYTE SEDIMENTATION RATE 63 mm/Hr (0-15)
[2019-06-11 06:02] LABS: LACTIC ACID 1.1 mmol/L (0.5-2.0)
[2019-06-11] MEDS: LABETALOL HCL 20MG INJ IV (06:06)
[2019-06-11 06:11] LABS: ADD UMIC YES; UR ASCORBIC ACID NEGATIVE (NEGATIVE); UR BACTERIA FEW /HPF (NONE SEEN); UR BILIRUBIN (Dip) NEGATIVE (NEGATIVE); UR BLOOD (Dip) 1+ mg/dL (NEGATIVE); UR CLARITY CLEAR (CLEAR); UR COLOR STRAW (YELLOW); UR GLUCOSE (Dip) NEGATIVE (NEGATIVE); UR KETONES (Dip) NEGATIVE (NEGATIVE); UR LEUKOCYTE ESTERASE (Dip) NEGATIVE Leu/ul (NEGATIVE); UR NITRITE (Dip) NEGATIVE (NEGATIVE); UR RBC 9 /HPF (0-5); UR SPECIFIC GRAVITY (Dip) 1.005 (1.003-1.030); UR TOTAL PROTEIN (Dip) 3+ mg/dl (NEGATIVE); UR UROBILINOGEN (Dip) NEGATIVE (NEGATIVE); UR WBC 0 /HPF (0-5)
[2019-06-11] MEDS: hydrALAzine 20 MG INJ IV (07:30)
[2019-06-11 09:20] LABS: LACTIC ACID 1.1 mmol/L (0.5-2.0)
[2019-06-11] MEDS ORDERED: GLUCOSE GEL 15 GRAM TUBE PO ×2 (17:00)
[2019-06-11] MEDS ORDERED: GLUCOSE GEL 15 GRAM TUBE BUCCAL (17:00)
[2019-06-11] MEDS ORDERED: DEXTROSE 50% 50 ML SYRINGE IV ×2 (17:00)
[2019-06-11] MEDS ORDERED: GLUCAGON 1 MG INJ IM (17:00)
[2019-06-11] MEDS: PANTOPRAZOLE (EC) 40 MG TAB PO (17:25)
[2019-06-11] MEDS: FERROUS SULFATE (EC) 325 MG TAB PO (17:26)
[2019-06-11] MEDS: ASPIRIN (EC) 81 MG TAB PO (17:26)
[2019-06-11] MEDS: LINAGLIPTIN 5 MG TABLET PO (17:33)
[2019-06-11] MEDS: DAPTOMYCIN IVPB (17:39)
[2019-06-11] MEDS: SOD CHLORIDE 0.9% IVPB (17:39)
[2019-06-11] MEDS: INSULIN ASPART [NOVOLOG] 3 ML PEN SC ×2 (17:46→20:51)
[2019-06-11] MEDS: INSULIN GLARGINE [LANTus] (100 UNITS/ML) SYG SC (20:50)
[2019-06-11] MEDS: LISINOPRIL 20 MG TAB PO (20:52)
[2019-06-11] MEDS: PENTOXIFYLLINE (SR) 400 MG TAB PO (20:52)
[2019-06-11] MEDS ORDERED: ATORVASTATIN 40 MG TAB PO (21:00)
[2019-06-12] MEDS ORDERED: INSULIN GLARGINE [LANTus] (100 UNITS/ML) SYG SC (02:18)
[2019-06-12 06:17] LABS: ADD MAN DIFF? NO
[2019-06-12 06:20] LABS: BASOPHIL # 0.1 10^3/ul (0.0-0.1); BASOPHILS % 1.2 % (0.0-2.0); EOSINOPHILS # 0.2 10^3/ul (0.0-0.5); HEMATOCRIT 28.8 % (42.0-52.0); HEMOGLOBIN 8.9 g/dl (14.0-18.0); LYMPHOCYTES % 26.1 % (15.0-51.0); MEAN CORPUSCULAR HEMOGLOBIN 25.6 pg (29.0-33.0); MEAN CORPUSCULAR HGB CONC 30.9 g/dl (32.0-37.0); MEAN PLATELET VOLUME 10.7 fl (7.4-10.4); MONOCYTE # 0.7 10^3/ul (0.3-0.9); MONOCYTES % 9.3 % (0.0-11.0); NEUTROPHIL # 4.6 10^3/ul (1.6-7.5); NEUTROPHILS % 59.9 % (39.0-77.0); PLATELET COUNT 288 10^3/UL (140-415); RED BLOOD COUNT 3.47 10^6/ul (4.70-6.10); RED CELL DISTRIBUTION WIDTH 15.3 % (11.5-14.5)
[2019-06-12 06:20] LABS: WHITE BLOOD COUNT 7.6 10^3/ul (4.8-10.8)
[2019-06-12 06:57] LABS: ANION GAP 6 (5-13); BLOOD UREA NITROGEN 17 mg/dl (7-20); CARBON DIOXIDE 26 mmol/L (21-31); CHLORIDE 106 mmol/L (97-110); CREATININE 1.44 mg/dl (0.61-1.24); Estimated GFR 53 mL/min (>60); GLUCOSE 190 mg/dl (70-220); SODIUM 138 mmol/L (135-144)
[2019-06-12 07:18] LABS: HEMOGLOBIN A1C 9.1 % (0-5.9)
[2019-06-12] MEDS: LINAGLIPTIN 5 MG TABLET PO (08:32)
[2019-06-12] MEDS: PANTOPRAZOLE (EC) 40 MG TAB PO (08:32)
[2019-06-12] MEDS: FERROUS SULFATE (EC) 325 MG TAB PO (08:32)
[2019-06-12] MEDS: ASPIRIN (EC) 81 MG TAB PO (08:32)
[2019-06-12] MEDS: LISINOPRIL 20 MG TAB PO ×2 (08:33→20:38)
[2019-06-12] MEDS: INSULIN ASPART [NOVOLOG] 3 ML PEN SC ×4 (08:37→21:00)
[2019-06-12] MEDS: PENTOXIFYLLINE (SR) 400 MG TAB PO ×3 (10:26→21:38)
[2019-06-12] MEDS ORDERED: LORAZEPAM 0.5 MG TAB PO (12:00)
[2019-06-12] MEDS: INSULIN GLARGINE [LANTus] (100 UNITS/ML) SYG SC ×2 (12:28→21:44)
[2019-06-12] MEDS: hydrALAzine 20 MG INJ IV (14:40)
[2019-06-12] MEDS: SOD CHLORIDE 0.9% IVPB (17:44)
[2019-06-12] MEDS: DAPTOMYCIN IVPB (17:44)
[2019-06-13] MEDS: hydrALAzine 20 MG INJ IV ×2 (01:21→17:05)
[2019-06-13 08:03] LABS: ANION GAP 6 (5-13); BLOOD UREA NITROGEN 20 mg/dl (7-20); CALCIUM 8.5 mg/dl (8.4-10.2); CARBON DIOXIDE 24 mmol/L (21-31); CHLORIDE 107 mmol/L (97-110); CREATININE 1.48 mg/dl (0.61-1.24); Estimated GFR 51 mL/min (>60); GLUCOSE 229 mg/dl (70-220); POTASSIUM 4.3 mmol/L (3.5-5.1); SODIUM 137 mmol/L (135-144)
[2019-06-13] MEDS: PANTOPRAZOLE (EC) 40 MG TAB PO (08:13)
[2019-06-13] MEDS: LINAGLIPTIN 5 MG TABLET PO (08:13)
[2019-06-13] MEDS: FERROUS SULFATE (EC) 325 MG TAB PO (08:13)
[2019-06-13] MEDS: ASPIRIN (EC) 81 MG TAB PO (08:13)
[2019-06-13 08:14] LABS: CREATINE KINASE 307 IU/L (23-200)
[2019-06-13] MEDS: PENTOXIFYLLINE (SR) 400 MG TAB PO ×3 (08:14→20:51)
[2019-06-13] MEDS: LISINOPRIL 20 MG TAB PO ×2 (08:14→20:51)
[2019-06-13] MEDS: INSULIN GLARGINE [LANTus] (100 UNITS/ML) SYG SC ×2 (08:22→20:56)
[2019-06-13] MEDS: INSULIN ASPART [NOVOLOG] 3 ML PEN SC ×4 (08:22→20:57)
[2019-06-13] MEDS: SOD CHLORIDE 0.45% 1,000 ML IV (15:13)
[2019-06-13] MEDS: SOD CHLORIDE 0.9% IVPB (17:50)
[2019-06-13] MEDS: DAPTOMYCIN IVPB (17:50)
[2019-06-14] MEDS: hydrALAzine 20 MG INJ IV ×2 (00:32→16:18)
[2019-06-14 05:24] LABS: ADD MAN DIFF? NO
[2019-06-14 05:33] LABS: WHITE BLOOD COUNT 8.7 10^3/ul (4.8-10.8)
[2019-06-14 05:33] LABS: BASOPHIL # 0.1 10^3/ul (0.0-0.1); BASOPHILS % 0.6 % (0.0-2.0); EOSINOPHILS # 0.2 10^3/ul (0.0-0.5); EOSINOPHILS % 2.5 % (0.0-7.0); HEMATOCRIT 27.7 % (42.0-52.0); HEMOGLOBIN 8.6 g/dl (14.0-18.0); LYMPHOCYTES # 1.7 10^3/ul (0.8-2.9); MEAN CORPUSCULAR HEMOGLOBIN 25.9 pg (29.0-33.0); MEAN CORPUSCULAR VOLUME 83.4 fl (82.0-101.0); MONOCYTE # 0.8 10^3/ul (0.3-0.9); MONOCYTES % 8.9 % (0.0-11.0); NEUTROPHILS % 68.5 % (39.0-77.0); PLATELET COUNT 281 10^3/UL (140-415); RED BLOOD COUNT 3.32 10^6/ul (4.70-6.10); RED CELL DISTRIBUTION WIDTH 15.4 % (11.5-14.5)
[2019-06-14 06:25] LABS: ANION GAP 5 (5-13); BLOOD UREA NITROGEN 22 mg/dl (7-20); CALCIUM 8.2 mg/dl (8.4-10.2); CARBON DIOXIDE 26 mmol/L (21-31); CHLORIDE 106 mmol/L (97-110); CREATININE 1.46 mg/dl (0.61-1.24); Estimated GFR 52 mL/min (>60); GLUCOSE 197 mg/dl (70-220); POTASSIUM 4.1 mmol/L (3.5-5.1); SODIUM 137 mmol/L (135-144)
[2019-06-14] MEDS: LINAGLIPTIN 5 MG TABLET PO (09:00)
[2019-06-14] MEDS: FERROUS SULFATE (EC) 325 MG TAB PO (09:00)
[2019-06-14] MEDS: LISINOPRIL 20 MG TAB PO ×2 (09:00→20:41)
[2019-06-14] MEDS: PANTOPRAZOLE (EC) 40 MG TAB PO (09:00)
[2019-06-14] MEDS: ASPIRIN (EC) 81 MG TAB PO (09:00)
[2019-06-14] MEDS: PENTOXIFYLLINE (SR) 400 MG TAB PO ×3 (09:00→20:40)
[2019-06-14] MEDS: INSULIN GLARGINE [LANTus] (100 UNITS/ML) SYG SC ×2 (09:31→20:44)
[2019-06-14] MEDS: INSULIN ASPART [NOVOLOG] 3 ML PEN SC ×4 (09:31→20:41)
[2019-06-14] MEDS ORDERED: MINERAL OIL LIGHT 10 ML VIAL (13:47)
[2019-06-14] MEDS: SOD CHLORIDE 0.45% 1,000 ML IV ×2 (14:30→21:06)
[2019-06-14] MEDS ORDERED: MEPERIDINE 100 MG INJ (14:51)
[2019-06-14] MEDS ORDERED: LIDOCAINE 2% (SDV) 5 ML INJ (14:51)
[2019-06-14] MEDS ORDERED: CEFAZOLIN 1 GM INJ (14:51)
[2019-06-14] MEDS ORDERED: PROPOFOL 0 ML (14:51)
[2019-06-14] MEDS ORDERED: PROPOFOL 20 ML (14:55)
[2019-06-14] MEDS ORDERED: MIDAZOLAM 1 MG/ML 2 ML INJ (14:55)
[2019-06-14] MEDS ORDERED: FENTAnyl 50 MCG/ML VIAL (14:56)
[2019-06-14] MEDS ORDERED: LABETALOL HCL 20MG INJ (14:59)
[2019-06-14] MEDS: POLYMYXIN/BACITRACIN 1L IRRIG (15:06)
[2019-06-14] MEDS: LIDOCAINE 1% (MPF) 30 ML INJ (15:06)
[2019-06-14] MEDS ORDERED: METOCLOPRAMIDE 10 MG INJ IV (16:00)
[2019-06-14] MEDS ORDERED: MIDAZOLAM 1 MG/ML 2 ML INJ IV (16:00)
[2019-06-14] MEDS ORDERED: ONDANSETRON 4 MG INJ IV (16:00)
[2019-06-14] MEDS ORDERED: DIPHENHYDRAMINE 50 MG INJ IV (16:00)
[2019-06-14] MEDS ORDERED: MEPERIDINE 25 MG INJ IV (16:00)
[2019-06-14] MEDS ORDERED: EPHEDrine 25 MG/5 ML SYG IV (16:00)
[2019-06-14] MEDS ORDERED: FENTAnyl 50 MCG/ML VIAL IV ×3 (16:00)
[2019-06-14] MEDS: LABETALOL HCL 20MG INJ IV (16:48)
[2019-06-14] MEDS: SOD CHLORIDE 0.9% IVPB (17:32)
[2019-06-14] MEDS: DAPTOMYCIN IVPB (17:32)
[2019-06-15 05:44] LABS: ADD MAN DIFF? NO
[2019-06-15 05:47] LABS: WHITE BLOOD COUNT 7.6 10^3/ul (4.8-10.8)
[2019-06-15 05:47] LABS: BASOPHIL # 0.1 10^3/ul (0.0-0.1); BASOPHILS % 0.8 % (0.0-2.0); EOSINOPHILS # 0.2 10^3/ul (0.0-0.5); EOSINOPHILS % 2.2 % (0.0-7.0); HEMATOCRIT 27.6 % (42.0-52.0); HEMOGLOBIN 8.5 g/dl (14.0-18.0); LYMPHOCYTES # 2.1 10^3/ul (0.8-2.9); LYMPHOCYTES % 27.2 % (15.0-51.0); MEAN CORPUSCULAR HEMOGLOBIN 25.6 pg (29.0-33.0); MEAN CORPUSCULAR HGB CONC 30.8 g/dl (32.0-37.0); MEAN CORPUSCULAR VOLUME 83.1 fl (82.0-101.0); MEAN PLATELET VOLUME 11.1 fl (7.4-10.4); MONOCYTE # 0.8 10^3/ul (0.3-0.9); NEUTROPHIL # 4.5 10^3/ul (1.6-7.5); NEUTROPHILS % 59.4 % (39.0-77.0); PLATELET COUNT 261 10^3/UL (140-415); RED BLOOD COUNT 3.32 10^6/ul (4.70-6.10); RED CELL DISTRIBUTION WIDTH 15.6 % (11.5-14.5)
[2019-06-15 06:11] LABS: PHOSPHORUS 3.7 mg/dl (2.5-4.9)
[2019-06-15 06:11] LABS: MAGNESIUM 2.1 mg/dl (1.7-2.5)
[2019-06-15 06:13] LABS: ANION GAP 5 (5-13); BLOOD UREA NITROGEN 19 mg/dl (7-20); CALCIUM 8.5 mg/dl (8.4-10.2); CARBON DIOXIDE 24 mmol/L (21-31); CHLORIDE 107 mmol/L (97-110); CREATININE 1.07 mg/dl (0.61-1.24); Estimated GFR > 60 mL/min (>60); GLUCOSE 123 mg/dl (70-220); SODIUM 136 mmol/L (135-144)
[2019-06-15] MEDS: INSULIN ASPART [NOVOLOG] 3 ML PEN SC ×4 (08:00→20:58)
[2019-06-15] MEDS: FERROUS SULFATE (EC) 325 MG TAB PO (08:53)
[2019-06-15] MEDS: PENTOXIFYLLINE (SR) 400 MG TAB PO ×3 (08:53→20:54)
[2019-06-15] MEDS: LINAGLIPTIN 5 MG TABLET PO (08:54)
[2019-06-15] MEDS: PANTOPRAZOLE (EC) 40 MG TAB PO (08:54)
[2019-06-15] MEDS: LISINOPRIL 20 MG TAB PO ×2 (08:54→20:54)
[2019-06-15] MEDS: ASPIRIN (EC) 81 MG TAB PO (08:54)
[2019-06-15] MEDS: INSULIN GLARGINE [LANTus] (100 UNITS/ML) SYG SC ×2 (08:58→21:02)
[2019-06-15] MEDS: FUROSEMIDE 40 MG INJ IV (15:55)
[2019-06-15] MEDS: SOD CHLORIDE 0.9% IVPB (17:32)
[2019-06-15] MEDS: DAPTOMYCIN IVPB (17:32)
[2019-06-16] MEDS: INSULIN ASPART [NOVOLOG] 3 ML PEN SC ×3 (08:00→17:31)
[2019-06-16] MEDS: INSULIN GLARGINE [LANTus] (100 UNITS/ML) SYG SC (08:05)
[2019-06-16] MEDS: FUROSEMIDE 40 MG INJ IV (08:54)
[2019-06-16] MEDS: LINAGLIPTIN 5 MG TABLET PO (08:55)
[2019-06-16] MEDS: LISINOPRIL 20 MG TAB PO (08:55)
[2019-06-16] MEDS: ASPIRIN (EC) 81 MG TAB PO (08:55)
[2019-06-16] MEDS: PANTOPRAZOLE (EC) 40 MG TAB PO (08:55)
[2019-06-16] MEDS: PENTOXIFYLLINE (SR) 400 MG TAB PO ×2 (08:56→14:17)
[2019-06-16] MEDS: FERROUS SULFATE (EC) 325 MG TAB PO (08:56)
[2019-06-16] MEDS: SOD CHLORIDE 0.9% IVPB (16:52)
[2019-06-16] MEDS: DAPTOMYCIN IVPB (16:52)
== END 2019-06-16 19:40 | disposition home health service (06) | DRG 629 ==
LOC: E/R 02:49 → 2NE 06-12 13:49 → 6WM 04:53
PROC: 0QBN0ZZ Excision of Right Metatarsal, Open Approach (ICD-10-PCS; principal; 2019-06-14 14:30)
DX: E11.69 Type 2 diabetes mellitus with other specified complication (principal); M86.8X7 Other osteomyelitis, ankle and foot; E11.621 Type 2 diabetes mellitus with foot ulcer; E11.65 Type 2 diabetes mellitus with hyperglycemia; R26.2 Difficulty in walking, not elsewhere classified; E11.42 Type 2 diabetes mellitus with diabetic polyneuropathy; L97.519 Non-pressure chronic ulcer of other part of right foot with unspecified severity; E11.610 Type 2 diabetes mellitus with diabetic neuropathic arthropathy; I11.0 Hypertensive heart disease with heart failure; I50.9 Heart failure, unspecified; E11.51 Type 2 diabetes mellitus with diabetic peripheral angiopathy without gangrene; E78.5 Hyperlipidemia, unspecified; E66.9 Obesity, unspecified; D64.9 Anemia, unspecified; E11.21 Type 2 diabetes mellitus with diabetic nephropathy; E11.319 Type 2 diabetes mellitus with unspecified diabetic retinopathy without macular edema; Z79.82 Long term (current) use of aspirin; Z86.73 Personal history of transient ischemic attack (TIA), and cerebral infarction without residual deficits; Z89.411 Acquired absence of right great toe
CPT/HCPCS: 73610-RT; 73630; 80048; 80053; 81001; 82550; 82962; 83036; 83605; 83735; 84100; 84484; 85025; 85610; 85651; 85730; 86140; 86850; 86900; 86901; 86920; 87040-91; 87070; 87075; 87081; 87086; 87102; 87116; 87206; 93005; 96374; 97162; 99285-25

== ENCOUNTER 2019-07-21 14:36 | Emergency (ER) | payer OTHER ==
[2019-07-21] MEDS: INSULIN GLARGINE [LANTus] (100 UNITS/ML) SYG SC (16:44)
== END 2019-07-21 16:48 | disposition home or self-care (01) ==
LOC: E/R 16:48
DX: I10 Essential (primary) hypertension (principal); E11.65 Type 2 diabetes mellitus with hyperglycemia; Z79.4 Long term (current) use of insulin; Z79.82 Long term (current) use of aspirin
CPT/HCPCS: 71045; 80053; 82962; 84484; 85025; 93005; 99285-25